=== PATIENT | female | born 1950 | race Caucasian/White ===

== ENCOUNTER 2017-05-25 21:58 | Emergency (ER) | payer OTHER ==
[~2017-05-25] VITALS: Ht 160 cm; Wt 70.3 kg
[2017-05-26 00:54] LABS: EOSINOPHIL (%) 2.2 % (0-5); EOSINOPHIL COUNT 0.2 K/uL (0-0.3); HEMATOCRIT 39.6 % (36.0-46.0); IMMATURE GRANULOCYTE (%) 0.4 % (0.0-0.7); INSTRUMENT ABS NEUTROPHIL CT 5.1 K/uL; LYMPHOCYTE COUNT 1.7 K/uL (1.0-2.8); MCH 29.5 PG (29.0-34.0); MCHC 33.8 G/DL (30.0-36.0); MEAN PLAT.VOLUME 10.7 uM^3 (9.5-12.4); MONOCYTE (%) 10.3 % (3-12); MONOCYTE COUNT 0.8 K/uL (0-0.8); NEUTROPHIL (%) 64.8 % (45-76); NEUTROPHIL COUNT 5.1 K/uL (1.8-6.4); PLATELET COUNT 209 K/uL (156-360); RBC DIS.WIDTH-CV 12.8 % (11.8-14.6); RBC DIS.WIDTH-SD 40.5 % (39-53); RED BLOOD COUNT 4.55 M/uL (3.80-5.20); WHITE BLOOD COUNT 7.8 K/uL (4.1-10.2)
[2017-05-26 01:04] LABS: CHLORIDE 100 mEq/L (99-109); POTASSIUM 3.4 mEq/L (3.7-5.4); SODIUM 134 mEq/L (136-147)
[2017-05-26 01:06] LABS: GLUCOSE 97 mg/dL (70-99)
[2017-05-26 01:07] LABS: ANION GAP 11 MEQ/L (2-14)
[2017-05-26 01:10] LABS: GFR ESTIMATE (CALCULATED) > 59 mL/min/
[2017-05-26 01:11] LABS: UREA NITROGEN (BUN) 26 mg/dL (9-23)
[2017-05-26] MEDS ORDERED: DOXYCYCLINE HY100 M3 PO (04:49)
[2017-05-26] MEDS ORDERED: VISTARIL25 MG PO (05:34)
[2017-05-26] MEDS ORDERED: LIPITOR40 MG PO (05:34)
[2017-05-26] MEDS ORDERED: IBUPROFEN800 MG PO (05:35)
[2017-05-26] MEDS ORDERED: BUPROPION XL300 MG PO (05:36)
[2017-05-26] MEDS ORDERED: PRILOSEC20 MG PO (05:37)
[2017-05-26] MEDS ORDERED: PLAVIX75 MG PO (05:37)
[2017-05-26] MEDS ORDERED: ASPIR 8181 M1 PO (05:38)
[2017-05-26] MEDS ORDERED: PRINZIDE 10-121 EACH PO (05:39)
[2017-05-26] MEDS ORDERED: BREO ELLIPTA 21 EACH PO (05:40)
[2017-05-26 05:51] VITALS: BP 111/67
== END 2017-05-26 05:52 | disposition home or self-care (01) ==
LOC: EME 21:58
PROVIDERS: Emergency Medicine
DX: I97.630 Postprocedural hematoma of a circulatory system organ or structure following a cardiac catheterization (principal); Y84.0 Cardiac catheterization as the cause of abnormal reaction of the patient, or of later complication, without mention of misadventure at the time of the procedure; I10 Essential (primary) hypertension; J44.9 Chronic obstructive pulmonary disease, unspecified; I25.2 Old myocardial infarction; Z95.5 Presence of coronary angioplasty implant and graft; K21.9 Gastro-esophageal reflux disease without esophagitis; F41.9 Anxiety disorder, unspecified; F32.9 Major depressive disorder, single episode, unspecified; Z85.43 Personal history of malignant neoplasm of ovary; Z90.710 Acquired absence of both cervix and uterus; Z85.828 Personal history of other malignant neoplasm of skin; Z88.0 Allergy status to penicillin; F17.200 Nicotine dependence, unspecified, uncomplicated
CPT/HCPCS: 72193; 80048; 83605; 85025; 87040; 87801; 94640; 99281; 99285; J2060; J7030